=== PATIENT | male | born 1945 | race Caucasian/White ===

== ENCOUNTER → 2016-09-11 | Outpatient (CLI) | payer OTHER, MEDICARE ==
--- NOTE | 2016-09-11 14:50 | US ---
Venous Duplex Doppler Study of the Left Lower Extremity Clinical Indications: 71-year-old male with pain and swelling in the left calf for one week, and a pr ior history of DVT. The patient is on Coumadin. ICD 10 Diagnostic Code: I82.409. Technique: A high-frequency transducer was used for imaging and Doppler study of the deep veins of th e left leg from the upper calf to the groin. Pulsed Doppler and color Doppler were utilized, along w ith various maneuvers, to assess flow in the deep veins. Cursory evaluation of the right common femor al vein was obtained for comparison purposes, and is normal. Comparison Study: None. Findings: The deep veins of the left groin, thigh, knee, and upper calf are displayed, and are emerita lly compressible. Doppler flow patterns are unremarkable. There is no evidence of deep venous throm bosis. There is normal compression of the greater saphenous vein, without superficial thrombosis. The popliteal fossa is notable for a complex hypoechoic partially-septated Mancera's cyst measuring 7.3 x 4.8 x 2.5 cm. Results were conveyed to Dr. Larry Luther. Impression: 1. There is no sonographic evidence of deep vein thrombosis in the left leg. 2. There is a complex-appearing 7.3 cm Mancera's cyst in the posterior medial popliteal fossa. A test result has been communicated to a licensed care provider and documented in [employer], 2:40:55 PM , 09/11/2016, [employer] Message ID [id number].
== END ==
LOC: FIMAGING 13:26
PROVIDERS: ATTEND Internal Medicine Hematology & Oncology
DX: M71.22 Synovial cyst of popliteal space [Baker], left knee (principal)

== ENCOUNTER → 2016-09-24 | Outpatient (CLI) | payer OTHER, MEDICARE ==
--- NOTE | 2016-09-24 15:05 | MR ---
MRI lower extremity, left knee History: Left knee pain. Swelling. Evaluate for medial meniscal tear and Mancera's cyst. ICD-10 code M 25.562. Comparison: Ultrasound from 11 September 2016. Technique: MRI was performed of the left knee using a 3 [employer] MRI system. Sagittal, coronal, and axi al imaging was obtained with standard imaging sequences. Findings: General: There is a moderate suprapatellar joint effusion with mild synovial proliferation. Complex Mancera's cyst is seen with septations and heterogeneous signal intensity extending craniocaudal at pily st 10 cm. The inferior aspect is incompletely included in the [id number]. Loose body is seen anter ior to the distal anterior cruciate ligament at the inferior aspect of the intercondylar notch measur ing 13 mm. Subcortical bone marrow edema and a subcortical cyst are seen beneath the tibial spines. Ligaments and tendons: Anterior cruciate and posterior cruciate ligaments are intact and unremarkabl e. Medial collateral ligament is intact. It is mildly thickened proximally, suggesting sequela from p rior injury. There is edema along the distal pes anserinus. Iliotibial band, fibular collateral ligam ent, and biceps femoris tendon are intact and unremarkable. Popliteus muscle and tendon are intact. Menisci and cartilage: Abnormal signal intensity is seen extending to the superior articular surface at the anterior horn lateral meniscus and the junction with the body. There is also some mild trunca tion and fraying at the body of the free edge. Cartilage signal abnormality and mild thinning are see n at the posterior weight-bearing portion of the lateral tibial plateau. Degenerative signal is seen in the medial meniscus without definitive extension to an articular surfa ce. There is, however, cartilage signal abnormality and thinning and a cartilage flap in the anterior weight-bearing portion of the medial femoral condyle measuring 9 x 11 mm. There is reactive subartic ular bone marrow edema. Extensor mechanism: Cartilage signal abnormality and thinning are seen in the patella and trochlear groove. This is more predominant along the median ridge and medial facet of the patella. Quadriceps t endon is unremarkable. Mild abnormal signal intensity is seen in the proximal patellar tendon without attenuation. Mild edema is seen in the subcutaneous fat anterior to the patella and patellar tendon. Impression: 1. Upper surface tear at the anterior horn and body of the lateral meniscus and some truncation at th e free edge. 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 Degenerative signal in the medial meniscus with no definitive tear. There is a focal area of carti ozzy thinning and a cartilage flap in the anterior weight-bearing portion of the medial femoral condy le as above. 3. 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 4. Moderate suprapatellar joint effusion. Loose body. Complex Mancera's cyst.
== END ==
LOC: FIMAGING 12:52
PROVIDERS: ATTEND Orthopaedic Surgery
DX: M25.562 Pain in left knee (principal); M23.242 Derangement of anterior horn of lateral meniscus due to old tear or injury, left knee; M25.462 Effusion, left knee; M23.42 Loose body in knee, left knee; M22.42 Chondromalacia patellae, left knee; M71.22 Synovial cyst of popliteal space [Baker], left knee